=== PATIENT | female | born 1950 | race Caucasian/White ===

== ENCOUNTER 2018-10-04 07:37 | Day surgery (SDC) | payer MEDICARE, BC ==
[2018-09-27 09:07] LABS: BASOPHILS # (AUTO) 0.1 X10'3 (0-0.2); BASOPHILS % (AUTO) 1.1 % (0-1); EOSINOPHILS # (AUTO) 0.3 X10'3 (0-0.9); EOSINOPHILS % (AUTO) 5.4 % (0-6); HEMATOCRIT 37.2 % (35.0-45.0); HEMOGLOBIN 12.4 g/dl (12.0-16.0); LYMPHOCYTES # (AUTO) 1.4 X10'3 (1.1-4.8); LYMPHOCYTES % (AUTO) 29.9 % (21-51); MEAN CORPUSCULAR HEMOGLOBIN 31.2 PG (27.0-31.0); MEAN CORPUSCULAR HGB CONC 33.5 g/dL (33.0-36.5); MEAN CORPUSCULAR VOLUME 93.1 FL (78-98); MEAN PLATELET VOLUME 9.1 FL (7.4-10.4); MONOCYTES # (AUTO) 0.7 X10'3 (0-0.9); MONOCYTES % (AUTO) 13.6 % (2-12); NEUTROPHILS # (AUTO) 2.4 X10'3 (1.8-7.7); PLATELET COUNT 153 X10'3 (140-440); RED BLOOD COUNT 3.99 X10'6 (4.20-5.60); RED CELL DISTRIBUTION WIDTH 12.7 % (11.5-14.5); WHITE BLOOD COUNT 4.8 X10'3 (4.5-11.0)
[2018-09-27 09:16] LABS: PARTIAL THROMBOPLASTIN TIME 28 SECONDS (22-32)
[2018-09-27 09:21] LABS: ALANINE AMINOTRANSFERASE 27 U/L (12-78); ALBUMIN 3.7 G/DL (3.4-5.0); ALBUMIN/GLOBULIN RATIO 1.2 (1.1-1.5); ALKALINE PHOSPHATASE 105 IU/L (46-116); ANION GAP 7 (8-16); ASPARTATE AMINO TRANSFERASE 13 U/L (10-37); BILIRUBIN,TOTAL 0.4 MG/DL (0.1-1.0); BLOOD UREA NITROGEN 15 MG/DL (7-18); BUN/CREATININE RATIO 27.3 (6.6-38.0); CALCIUM 8.7 MG/DL (8.5-10.1); CHLORIDE 108 MMOL/L (99-107); CREATININE 0.55 MG/DL (0.40-0.90); GLUCOSE 105 MG/DL (70-104); POTASSIUM 4.2 MMOL/L (3.5-5.1); SODIUM 142 MMOL/L (135-145); TOTAL CARBON DIOXIDE 27.5 MMOL/L (24-32); TOTAL PROTEIN 6.9 G/DL (6.4-8.2); eGFR > 90 ML/MIN
[~2018-10-04] VITALS: Ht 170.2 cm; Wt 90.4 kg
[2018-10-04] VITALS (12 sets, daily range): BP systolic 121–174; BP diastolic 60–86
[2018-10-04] MEDS ORDERED: dextrose ORAL solution 15 GM/59 ML bottle PO PRN ×2 (07:55)
[2018-10-04] MEDS ORDERED: diphenhydrAMINE 25mg capsule PO PRN (07:55)
[2018-10-04] MEDS ORDERED: dextrose 50%-water 50ml dispensing syringe IV PRN ×2 (07:55)
[2018-10-04] MEDS ORDERED: nitroGLYCERIN 0.4mg SUBLingual tab SL PRN (07:55)
[2018-10-04] MEDS ORDERED: normal saline 1,000 ML IV SCH (07:55)
[2018-10-04] MEDS ORDERED: glucagon, human recombinant 1mg kit SUBCUT PRN (07:55)
[2018-10-04] MEDS ORDERED: LORazepam 0.5 MG tablet PO PRN (07:55)
[2018-10-04] MEDS ORDERED: MESSAGE TO PHARMACY PO ONE (07:55)
[2018-10-04] MEDS ORDERED: insulin Lispro (HumaLOG) vial - multi-dose SQ SCH (07:55)
[2018-10-04] MEDS ORDERED: FLUT1DIS INH (08:26)
[2018-10-04] MEDS ORDERED: SITA100T11 PO (08:26)
[2018-10-04] MEDS ORDERED: PITA4TAB2 PO (08:26)
[2018-10-04] MEDS ORDERED: LOSA50TA3 PO (08:26)
[2018-10-04] MEDS ORDERED: ASPI-1265 PO (08:26)
[2018-10-04] MEDS ORDERED: ALBU8.5H8 INH (08:26)
[2018-10-04] MEDS ORDERED: TRAV5DRO EACHEYE (08:26)
[2018-10-04] MEDS ORDERED: BRIN8DRO EACHEYE (08:26)
[2018-10-04] MEDS ORDERED: midazolam 2 mg/2 ml injection ONE ×2 (09:08→09:34)
[2018-10-04] MEDS ORDERED: iohexol 350MG/ML 100ml bottle IV ONE (09:09)
[2018-10-04] MEDS ORDERED: fentaNYL/PF 50MCG/1 ML 2ML syringe ONE (09:09)
[2018-10-04] MEDS ORDERED: LIDOcaine 1% (10mg/ml)w/preservative injection 20ml MDV ONE (09:09)
[2018-10-04] MEDS ORDERED: heparin 1,000 UNITS/NS 500ml 500 ML ONE ×2 (09:09)
[2018-10-04] MEDS ORDERED: iohexol 350 MG/ML 50ML vial IV ONE (09:09)
[2018-10-04] MEDS ORDERED: insulin glargine (Lantus) pen - multi-dose SQ SCH (21:00)
[2018-11-22] MEDS ORDERED: ESOM40CA49 PO (16:51)
== END 2018-10-04 16:55 | disposition home or self-care (01) ==
LOC: SSTAY O 07:37
PROVIDERS: ATTEND Internal Medicine Cardiovascular Disease
DX: I25.10 Atherosclerotic heart disease of native coronary artery without angina pectoris (principal); I10 Essential (primary) hypertension; E11.9 Type 2 diabetes mellitus without complications; E78.5 Hyperlipidemia, unspecified; Z87.891 Personal history of nicotine dependence; J44.9 Chronic obstructive pulmonary disease, unspecified; Z88.0 Allergy status to penicillin; Z79.01 Long term (current) use of anticoagulants; Z79.899 Other long term (current) drug therapy
CPT/HCPCS: 36415; 71046; 80053; 82948; 85025; 85610; 85730; 93458; 99152; 99153; C1769; J1644; J2001; J2250; J3010; J7030; Q0163; Q9967; A4620; A6258; C1760

== ENCOUNTER 2018-12-04 08:48 | Inpatient (IN) | payer MEDICARE, OTHER ==
[2018-11-22 14:51] LABS: BASOPHILS % (AUTO) 0.8 % (0-1); EOSINOPHILS # (AUTO) 0.2 X10'3 (0-0.9); EOSINOPHILS % (AUTO) 4.3 % (0-6); LYMPHOCYTES # (AUTO) 1.7 X10'3 (1.1-4.8); MEAN CORPUSCULAR HEMOGLOBIN 31.5 PG (27.0-31.0); MEAN CORPUSCULAR HGB CONC 33.6 g/dL (33.0-36.5); MEAN CORPUSCULAR VOLUME 93.6 FL (78-98); MEAN PLATELET VOLUME 8.5 FL (7.4-10.4); MONOCYTES # (AUTO) 0.6 X10'3 (0-0.9); MONOCYTES % (AUTO) 14.4 % (2-12); NEUTROPHILS # (AUTO) 1.9 X10'3 (1.8-7.7); NEUTROPHILS % (AUTO) 43.5 % (42-75); PRE OP HEMATOCRIT 38.4 % (35.0-45.0); PRE OP HEMOGLOBIN 12.9 g/dL (12.0-16.0); PRE OP PLATELET COUNT 174 X10'3 (140-440); RED CELL DISTRIBUTION WIDTH 12.8 % (11.5-14.5)
[2018-11-22 15:06] LABS: ALBUMIN 3.7 G/DL (3.4-5.0); ALBUMIN/GLOBULIN RATIO 1.1 (1.1-1.5); ALKALINE PHOSPHATASE 94 IU/L (46-116); BLOOD UREA NITROGEN 13 MG/DL (7-18); BUN/CREATININE RATIO 20.6 (6.6-38.0); CALCIUM 9.2 MG/DL (8.5-10.1); CHLORIDE 106 MMOL/L (99-107); CREATININE 0.63 MG/DL (0.40-0.90); PRE OP ALT 33 U/L (30-65); PRE OP ANION GAP 7 (8-16); PRE OP AST 22 U/L (10-37); PRE OP BILIRUB, TOTAL 0.3 MG/DL (0.0-1.0); PRE OP GLUCOSE 111 MG/DL (70-104); PRE OP POTASSIUM 4.1 MMOL/L (3.4-5.1); PRE OP SODIUM 143 MMOL/L (135-145); TOTAL CARBON DIOXIDE 30.2 MMOL/L (24-32); TOTAL PROTEIN 7.1 G/DL (6.4-8.2); eGFR > 90 ML/MIN
[2018-11-22 16:29] LABS: PRE OP PROTIME 10.9 SECONDS (9.0-12.0)
[~2018-12-04] VITALS: Ht 175.3 cm; Wt 90.2 kg
[2018-12-04] VITALS (18 sets, daily range): BP systolic 109–166; BP diastolic 53–98
[~2018-12-04 08:48] MED LIST: ASPI-1265 PO; BRIN8DRO EACHEYE; ESOM40CA49 PO; LOSA50TA3 PO; PITA4TAB2 PO; SITA100T11 PO; TRAV5DRO EACHEYE; clindamycin-Cleocin 900mg/D5W 50 ML IV ONE; famotidine 20mg tablet PO ONE; meperidine/PF 25mg/ml syringe IV PRN; morphine 4 MG/ML inj SYRINge IV PRN; ondansetron/PF 4mg/2ml inj IV PRN; proCHLORperazine 10 MG/2 ml inj IV PRN; ringers solution, lacted 1,000 ML IV SCH; tranexamic acid inj. 1,000 MG in normal saline 100 ML IV ONE; vancomycin inj 1,500 MG in normal saline 300ml IV soln IV ONE
[2018-12-04] MEDS ORDERED: ceFAZolin 1000mg inj ONE (08:51)
[2018-12-04] MEDS ORDERED: fentaNYL/PF 50MCG/1 ML 2ML syringe ONE (10:19)
[2018-12-04] MEDS ORDERED: MIDAZolam 1mg/ml 10ml vial ONE (10:19)
[2018-12-04] MEDS ORDERED: ROPIVAcaine 0.5% (5mg/ml) 30ml vial ONE (10:42)
[2018-12-04] MEDS: potassium Cl 20mEq in NS 1,000 ML IV SCH (12:41)
[2018-12-04] MEDS ORDERED: diphenhydrAMINE 25mg capsule PO PRN ×2 (12:45)
[2018-12-04] MEDS ORDERED: bisacodyl 10mg suppository rectal RC PRN (12:45)
[2018-12-04] MEDS ORDERED: HYDROmorphone inj. 0.5 MG/0.5 ML DISP.SYRIN IV PRN (12:45)
[2018-12-04] MEDS ORDERED: acetaminophen 325mg tablet PO PRN (12:45)
[2018-12-04] MEDS ORDERED: magnesium hydroxide 30ml (MOM) UD suspension PO PRN (12:45)
[2018-12-04] MEDS ORDERED: HYDROcodone/acetaminophen 10/325mg tab PO PRN (12:45)
[2018-12-04] MEDS ORDERED: dextrose ORAL solution 15 GM/59 ML bottle PO PRN ×2 (12:50)
[2018-12-04] MEDS ORDERED: dextrose 50%-water 50ml dispensing syringe IV PRN ×2 (12:50)
[2018-12-04] MEDS ORDERED: glucagon, human recombinant 1mg kit SUBCUT PRN (12:50)
[2018-12-04] MEDS ORDERED: MESSAGE TO PHARMACY PO ONE (12:50)
--- NOTE | 2018-12-04 12:54 | NUR ---
Received from OR via , accompanied by Anesthesiologist TRIP and report given by Anesthesiolgist. AWAKE IN NO RESP DISTRESS SKIN WARM AND DRY HOB ELEVATED, RLE ELEVATED WITIH HEEL NOT TOUCHING BED. FEET WARM PINK GOOD CAP REFILL AND PULSES SCDS ON, ARCHER SECURE WITH CLEAR YELLOW URINE. ICE TO RT KNEE.
[2018-12-04] MEDS: ROPIVAcaine 0.2%/PF PAIN PUMP 550 ML IJ SCH (14:02)
--- NOTE | 2018-12-04 14:04 | NUR ---
Report called to receiving nurse. Transferred via BED Belongings . Special Issues communicated to receiving nurse.AWAKE VS WNL NO CO PAIN DSG LENARD DI, HAS PAIN PUMP ON-Q, ARCHER SECURE WITH CLEAR YELLOW URINE QS, SCDS CONT. ICE TO KNEE, TOLERATES LIQUIDS. FAMILIAngeline HAS BELONGING BAGS, TO ROOM 4024
[2018-12-04] MEDS: HYDROcodone/acetaminophen 10/325mg tab PO PRN ×2 (16:16→20:13)
[2018-12-04] MEDS: aspirin 81mg tablet.DR PO SCH (17:30)
[2018-12-04] MEDS: clindamycin 600mg/D5W 50ml 50 ML IV SCH ×2 (17:57→23:10)
[2018-12-04] MEDS ORDERED: vancomycin/NS 1 GM ADD-VANTAGE 250 ML IV SCH (20:00)
[2018-12-04] MEDS: latanoprost 0.005% 2.5ml ophthalmic drops EACHEYE SCH (20:12)
[2018-12-04] MEDS: sennosides 8.6mg tablet PO SCH (20:15)
[2018-12-04] MEDS ORDERED: clindamycin 600mg/D5W 50ml 50 ML IV SCH (23:04)
[2018-12-04] MEDS: insulin glargine (Lantus) pen - multi-dose SQ SCH (23:06)
[2018-12-05] MEDS: HYDROcodone/acetaminophen 10/325mg tab PO PRN ×5 (00:16→23:06)
[2018-12-05] MEDS: potassium Cl 20mEq in NS 1,000 ML IV SCH ×2 (00:16→09:31)
[2018-12-05 02:00] VITALS: BP 104/62
[2018-12-05] MEDS: ondansetron/PF 4mg/2ml inj IV PRN (02:50)
[2018-12-05 05:48] LABS: BASOPHILS % (AUTO) 0.2 % (0-1); EOSINOPHILS % (AUTO) 0 % (0-6); HEMATOCRIT 31.3 % (35.0-45.0); HEMOGLOBIN 10.9 g/dl (12.0-16.0); LYMPHOCYTES # (AUTO) 0.7 X10'3 (1.1-4.8); LYMPHOCYTES % (AUTO) 6.1 % (21-51); MEAN CORPUSCULAR HEMOGLOBIN 32.4 PG (27.0-31.0); MEAN CORPUSCULAR HGB CONC 34.7 g/dL (33.0-36.5); MEAN CORPUSCULAR VOLUME 93.2 FL (78-98); MEAN PLATELET VOLUME 8.5 FL (7.4-10.4); MONOCYTES % (AUTO) 9.5 % (2-12); NEUTROPHILS % (AUTO) 84.2 % (42-75); PLATELET COUNT 169 X10'3 (140-440); RED BLOOD COUNT 3.35 X10'6 (4.20-5.60); RED CELL DISTRIBUTION WIDTH 12.4 % (11.5-14.5); WHITE BLOOD COUNT 10.7 X10'3 (4.5-11.0)
[2018-12-05 06:00] VITALS: BP 143/58
[2018-12-05 06:16] LABS: ALANINE AMINOTRANSFERASE 25 U/L (12-78); ALBUMIN 3.3 G/DL (3.4-5.0); ALKALINE PHOSPHATASE 68 IU/L (46-116); ANION GAP 6 (8-16); ASPARTATE AMINO TRANSFERASE 14 U/L (10-37); BILIRUBIN,TOTAL 0.7 MG/DL (0.1-1.0); BLOOD UREA NITROGEN 16 MG/DL (7-18); BUN/CREATININE RATIO 22.5 (6.6-38.0); CALCIUM 8.2 MG/DL (8.5-10.1); CHLORIDE 104 MMOL/L (99-107); CREATININE 0.71 MG/DL (0.40-0.90); GLUCOSE 188 MG/DL (70-104); POTASSIUM 4.6 MMOL/L (3.5-5.1); SODIUM 136 MMOL/L (135-145); TOTAL CARBON DIOXIDE 25.8 MMOL/L (24-32); TOTAL PROTEIN 6.5 G/DL (6.4-8.2); eGFR 82 ML/MIN
--- NOTE | 2018-12-05 06:32 | NUR ---
Patient in room ORTHO 4024. I have received report from Emeli and had the opportunity to ask questions and assume patient care.
[2018-12-05] MEDS ORDERED: pantoprazole 40mg Tablet.DR PO PRN (07:30)
[2018-12-05] MEDS: losartan 50mg tablet PO SCH (08:00)
[2018-12-05 08:15] VITALS: BP 110/54
[2018-12-05] MEDS: aspirin 81mg tablet.DR PO SCH ×2 (08:16→19:01)
[2018-12-05] MEDS: insulin Lispro (HumaLOG) vial - multi-dose SQ SCH ×3 (09:12→19:01)
[2018-12-05 10:00] VITALS: BP 109/64
--- NOTE | 2018-12-05 11:44 | NUR ---
Student Medication Administration:For this medication-pass time frame 6935-0889, all medications were reviewed,administered and documented per hospital policy by Cadence Romero. Student documentation:I have reviewed and agree with all interventions, assessments performed and documented by Cadence Romero.
--- NOTE | 2018-12-05 11:47 | NUR ---
Joint replacement consult: Pt s/p R knee surgery PO 75avg% meals meeting healing needs thus far. LBM 12/04 receiving routine senna w/ MoM and dulcolax PRN. Will monitor for additional protein needs; no current nutrition concerns at this time. Addendum: 12/05/18 at [address] Amended: Links added.
--- NOTE | 2018-12-05 12:08 | NUR ---
Problems reprioritized. Patient report given, questions answered & plan of care reviewed with Emeli.
--- NOTE | 2018-12-05 17:00 | NUR ---
on Q pump reduced from 10 to 6
[2018-12-05 18:00] VITALS: BP 96/69
[2018-12-05] MEDS: latanoprost 0.005% 2.5ml ophthalmic drops EACHEYE SCH (20:24)
[2018-12-05] MEDS: sennosides 8.6mg tablet PO SCH (20:24)
[2018-12-05] MEDS: insulin glargine (Lantus) pen - multi-dose SQ SCH (20:58)
[2018-12-05 22:00] VITALS: BP 161/67
[2018-12-06] MEDS: HYDROcodone/acetaminophen 10/325mg tab PO PRN (04:21)
[2018-12-06] MEDS: ondansetron/PF 4mg/2ml inj IV PRN ×2 (04:24→15:07)
--- NOTE | 2018-12-06 04:56 | NUR ---
Spoke with MANUEL Hopper regarding patient home medication Januvia and plan for restart. New orders received to DC insulin orders and place order for patient home dose of Januvia.
[2018-12-06] MEDS: losartan 50mg tablet PO SCH (05:42)
[2018-12-06 06:00] VITALS: BP 184/80
--- NOTE | 2018-12-06 06:35 | NUR ---
Patient in room ORTHO 4024. I have received report from Kandi Castano and had the opportunity to ask questions and assume patient care.
--- NOTE | 2018-12-06 06:37 | NUR ---
Report given to Nany FISHER.
[2018-12-06 06:38] LABS: BASOPHILS % (AUTO) 0.2 % (0-1); EOSINOPHILS % (AUTO) 0 % (0-6); HEMATOCRIT 26.5 % (35.0-45.0); HEMOGLOBIN 9.2 g/dl (12.0-16.0); LYMPHOCYTES # (AUTO) 0.9 X10'3 (1.1-4.8); LYMPHOCYTES % (AUTO) 8.5 % (21-51); MEAN CORPUSCULAR HEMOGLOBIN 32.2 PG (27.0-31.0); MEAN CORPUSCULAR HGB CONC 34.6 g/dL (33.0-36.5); MEAN PLATELET VOLUME 8.6 FL (7.4-10.4); MONOCYTES # (AUTO) 1.2 X10'3 (0-0.9); MONOCYTES % (AUTO) 11.8 % (2-12); NEUTROPHILS # (AUTO) 8.4 X10'3 (1.8-7.7); NEUTROPHILS % (AUTO) 79.5 % (42-75); PLATELET COUNT 141 X10'3 (140-440); RED BLOOD COUNT 2.85 X10'6 (4.20-5.60); RED CELL DISTRIBUTION WIDTH 12.3 % (11.5-14.5); WHITE BLOOD COUNT 10.5 X10'3 (4.5-11.0)
[2018-12-06 06:57] LABS: ALANINE AMINOTRANSFERASE 25 U/L (12-78); ALBUMIN 3.1 G/DL (3.4-5.0); ALBUMIN/GLOBULIN RATIO 0.9 (1.1-1.5); ALKALINE PHOSPHATASE 65 IU/L (46-116); ANION GAP 7 (8-16); ASPARTATE AMINO TRANSFERASE 13 U/L (10-37); BILIRUBIN,TOTAL 0.6 MG/DL (0.1-1.0); BLOOD UREA NITROGEN 11 MG/DL (7-18); BUN/CREATININE RATIO 20.8 (6.6-38.0); CALCIUM 8.6 MG/DL (8.5-10.1); CHLORIDE 100 MMOL/L (99-107); CREATININE 0.53 MG/DL (0.40-0.90); GLUCOSE 177 MG/DL (70-104); SODIUM 133 MMOL/L (135-145); TOTAL CARBON DIOXIDE 26.2 MMOL/L (24-32); TOTAL PROTEIN 6.4 G/DL (6.4-8.2); eGFR > 90 ML/MIN
[2018-12-06] MEDS: aspirin 81mg tablet.DR PO SCH (08:37)
[2018-12-06] MEDS ORDERED: linagliptin 5mg tablet PO SCH (08:42)
[2018-12-06] MEDS ORDERED: HYDR-4353 PO (09:38)
[2018-12-06] MEDS ORDERED: ASPI-1071 PO (09:38)
[2018-12-06 10:00] VITALS: BP 177/81
[2018-12-06] MEDS: ROPIVAcaine 0.2%/PF PAIN PUMP 550 ML IJ SCH (12:54)
--- NOTE | 2018-12-06 14:00 | NUR ---
Pt had c/o anxiety and feeling "angry" for which she related it to the Tradjenta. The Tradjenta was substituted for pt's regular home med of Januvia. battery container inspector contacted orthopaedic CIRCUIT BREAKER SUPERVISOR, no new orders received. Provided comfort measures to pt, re-reviewed medication with pt. Pt stated she was feeling better.
[2018-12-06] MEDS ORDERED: ROPIVAcaine 0.2%/PF PAIN PUMP 550 ML IJ SCH (15:01)
[2018-12-06] MEDS ORDERED: ROPIVAcaine 0.2%/PF PAIN PUMP 550 ML ADDCANAL SCH (15:35)
--- NOTE | 2018-12-06 16:36 | NUR ---
Reviewed discharge instructions with pt. Pt verbalized understanding. Pt is alert, oriented and does not have c/o pain at this time. All of pt's belongings were returned to pt. Pt's On-Q pump was replaced with a full, new ball. Pt was given the Rx slip for her pain medication, a copy was placed in the chart. Pt was wheeled downstairs to be driven home by her spouse.
== END 2018-12-06 16:32 | disposition home or self-care (01) | DRG 470 ==
LOC: PAS IN 08:48 → EDSTATUS 11:00 → ORTHO 4S 14:15
PROVIDERS: ADMIT Orthopaedic Surgery; ATTEND Orthopaedic Surgery
PROC: 3E0T3BZ Introduction of Anesthetic Agent into Peripheral Nerves and Plexi, Percutaneous Approach (ICD-10-PCS; 2018-12-04)
PROC: 0SRC0J9 Replacement of Right Knee Joint with Synthetic Substitute, Cemented, Open Approach (ICD-10-PCS; principal; 2018-12-04 10:08)
DX: M17.11 Unilateral primary osteoarthritis, right knee (principal); D62 Acute posthemorrhagic anemia; E11.9 Type 2 diabetes mellitus without complications; M81.0 Age-related osteoporosis without current pathological fracture; E66.9 Obesity, unspecified; I10 Essential (primary) hypertension; K21.9 Gastro-esophageal reflux disease without esophagitis; Z88.0 Allergy status to penicillin; Z88.8 Allergy status to other drugs, medicaments and biological substances; Z98.891 History of uterine scar from previous surgery; Z87.891 Personal history of nicotine dependence; Z68.29 Body mass index [BMI] 29.0-29.9, adult
CPT/HCPCS: 36415; 80053; 82948; 83036; 85025; 85610; 85730; 86885; 86900; 86901; 86920; 87081; 97110; 97116; 97161; 97530; A4215; A6455; A7000; C1713; C1758; C1776; G0378; J0690; J1815; J2250; J2405; J2795; J3010; J3370; J3480; J3490; J7120

== ENCOUNTER 2021-03-20 11:34 | Emergency (ER) | payer MEDICARE, OTHER ==
[~2021-03-20] VITALS: Ht 170.2 cm; Wt 90.9 kg
[~2021-03-20 11:34] MED LIST changes: +ASPI-1071 PO; -ASPI-1265 PO; +HYDR-4353 PO; -PITA4TAB2 PO; -SITA100T11 PO; -clindamycin-Cleocin 900mg/D5W 50 ML IV ONE; -famotidine 20mg tablet PO ONE; -meperidine/PF 25mg/ml syringe IV PRN; -morphine 4 MG/ML inj SYRINge IV PRN; -ondansetron/PF 4mg/2ml inj IV PRN; -proCHLORperazine 10 MG/2 ml inj IV PRN; -ringers solution, lacted 1,000 ML IV SCH; -tranexamic acid inj. 1,000 MG in normal saline 100 ML IV ONE; -vancomycin inj 1,500 MG in normal saline 300ml IV soln IV ONE
[2021-03-20 11:47] VITALS: BP 123/52
[2021-03-20] MEDS ORDERED: HYDROcodone/acetaminophen 10/325mg tab PO ONE (13:55)
[2021-03-20] MEDS ORDERED: HYDR-3972 PO (14:04)
== END 2021-03-20 15:08 | disposition home or self-care (01) ==
LOC: ER 11:34
DX: S52.502A Unspecified fracture of the lower end of left radius, initial encounter for closed fracture (principal); M25.532 Pain in left wrist; Z88.0 Allergy status to penicillin; Z88.1 Allergy status to other antibiotic agents; Z88.8 Allergy status to other drugs, medicaments and biological substances; Z79.82 Long term (current) use of aspirin; Z79.899 Other long term (current) drug therapy; W01.0XXA Fall on same level from slipping, tripping and stumbling without subsequent striking against object, initial encounter; Y93.89 Activity, other specified; Y92.89 Other specified places as the place of occurrence of the external cause; Y99.8 Other external cause status
CPT/HCPCS: 29125; 73110; 99284